=== PATIENT | female | born 1945 | race Caucasian/White ===

== ENCOUNTER 2022-10-24 12:40 | Inpatient (IN) | payer MEDICARE, SELFPAY ==
[2022-10-24] VITALS (49 sets, daily range): BP systolic 107–150; BP diastolic 63–107; PULSE 55–79; RESP 12–28; TEMP 36.6–37.1; O2SAT 78–100; BMI 19.9
--- NOTE | ~2022-10-24 | XR_ITS ---
XR chest 1V DATE: 10/24/2022 16:55 INDICATION: Central chest pain. Fall one month ago. TECHNIQUE: AP chest COMPARISON: 08/27/2019 PA and lateral chest FINDINGS: Heart size appears within normal limits. No hilar or mediastinal enlargement. No pulmonary infiltrate or consolidation, pleural effusion or pulmonary vascular congestion or pneumothorax. Inclu ded skeletal structures appear unremarkable. IMPRESSION: No active cardiopulmonary disease Reviewed, dictated and finalized at location L. ICATION PROGRAMMER ANALYST
--- NOTE | ~2022-10-24 | CT_ITS ---
EXAMINATION: CT brain wo con DATE: 10/24/2022 16:05 INDICATION: Fall. TECHNIQUE: Computed tomography (CT) of the head was performed without intravenous contrast. The mA wa s adjusted according to patient size. Iterative reconstruction technique was employed. The dose-lengt h product was 605.33 mGy-cm. COMPARISON: None FINDINGS: There is no intracranial hemorrhage, acute infarction, or abnormal intracranial mass lesion . There are scattered areas of low attenuation in the cerebral white matter. The ventricles are dhiraj l in size. There are likely changes of ocular lens replacement surgeries. There is mild mucosal thick ening in the paranasal sinuses. There are changes of right-sided cochlear implant. There is a small r ight mastoid effusion. IMPRESSION: 1. Mild nonspecific cerebral white matter disease, which likely represents chronic small vessel ische sarbjit disease. Reviewed, dictated and finalized at location A. MODEL DEPARTMENT SUPERVISOR IMPRESSION: 1. Mild nonspecific cerebral white matter disease, which likely represents solar field service technician reid small vessel ischemic disease.
--- NOTE | ~2022-10-24 | XR_ITS ---
EXAMINATION: XR chest 2V Exam Date/Time: 10/26/2022 14:25 DIESEL MECHANIC CONSTRUCTION HISTORY: 24 hours post pacemaker insertion Comparison: 10/25/2022 and 10/27/2018. RESULT: Lines, tubes, and devices: Left chest pacer with intact leads. Lungs and pleura: Senescent change, stable chronic bilateral minimal costophrenic angle blunting. Cardiomediastinal silhouette: Stable. Other: No acute osseous or upper abdominal finding. IMPRESSION: No acute cardiopulmonary process. Reviewed, dictated and finalized at location K. EL MECHANIC CONSTRUCTION
--- NOTE | ~2022-10-24 | CT_ITS ---
EXAMINATION: CT cervical spine wo con DATE: 10/24/2022 16:44 INDICATION: Fall. TECHNIQUE: Computed tomography (CT) of the cervical spine was performed without intravenous contrast. Automated exposure control and iterative reconstruction technique were employed. The dose-length pro duct was 118.30 mGy-cm. COMPARISON: None FINDINGS: There is mild scarring at the lung apices. There is 2 mm retrolisthesis of C3 and C4. Verte bral body heights are normal. There is severely decreased disc height from C3-C4 through C6-C7 with e ndplate remodeling. The following disc levels are specifically discussed: C2-C3: There is mild right uncovertebral joint osteoarthritis. There is severe right and mild left fa cet joint osteoarthritis. There is mild right neural foraminal stenosis. There is no central canal st enosis. C3-C4: There is severe bilateral uncovertebral joint osteoarthritis. There is mild bilateral facet anthony int osteoarthritis. There is mild bilateral neural foraminal stenosis. There is mild central canal st enosis. C4-C5: There is severe bilateral uncovertebral joint osteoarthritis. There is moderate right and jesus re left facet joint osteoarthritis. There is mild bilateral neural foraminal stenosis. There is mild central canal stenosis. C5-C6: There is severe bilateral uncovertebral joint osteoarthritis. There is moderate right and jesus re left facet joint osteoarthritis. There is mild bilateral neural foraminal stenosis. There is mild central canal stenosis. C6-C7: There is severe right and mild left uncovertebral joint osteoarthritis. There is severe bilate ral facet joint osteoarthritis. There is mild bilateral neural foraminal stenosis. There is mild cent ral canal stenosis. C7-T1: There is no uncovertebral joint osteoarthritis. There is severe bilateral facet joint osteoart hritis. There is mild bilateral neural foraminal stenosis. There is no central canal stenosis. IMPRESSION: 1. No fracture. 2. Severe cervical spondylosis. Reviewed, dictated and finalized at location A. TIVE SPECIALIST
--- NOTE | ~2022-10-24 | XR_ITS ---
EXAMINATION: XR chest 1V portable DATE: 10/25/2022 19:15 INDICATION: Pacer placement. Chest pain. TECHNIQUE: A single frontal view of the chest was obtained. COMPARISON: Chest single view at 3:07 PM, chest 2 views 08/27/2019 FINDINGS: There is mild scarring in right midlung zone. There is mild scarring at the lung apices. No pleural effusion or pneumothorax. There is chronic blunting of left lateral costophrenic angle, like ly scarring. The heart size is normal. There are prominent paracardial fat pads. There is a left ches t wall pacer with leads in the right atrium and right ventricle. IMPRESSION: 1. Mild scarring in the lungs. Reviewed, dictated and finalized at location A. L EXPEDITER
--- NOTE | ~2022-10-24 | XR_ITS ---
EXAMINATION: XR chest 1V portable DATE: 10/25/2022 15:16 INDICATION: Pacemaker insertion TECHNIQUE: frontal view of the chest was obtained. COMPARISON: Chest radiograph dated 10/24/2022 FINDINGS: Interval placement of a dual lead pacemaker seen with leads projecting over the expected locations of the right atrium and right ventricle. Persistent mild streaky opacities at the lung bases and favor atelectasis over pneumonia. Mild blunting at the left costophrenic angle suggesting a tiny left pleur al effusion. No pneumothorax or right pleural effusion. The cardiomediastinal silhouette is normal. IMPRESSION: 1. Delayed cardiac pacemaker in expected position. 2. Tiny left pleural effusion and mild streaky bibasilar atelectasis versus less likely pneumonia. Reviewed, dictated and finalized at location A. OR SAS DEVELOPER IMPRESSION: 1. Delayed cardiac pacemaker in expected position. 2. Tiny left pleural effusion and mild streaky bibasilar atelectasis versus les s likely pneumonia.
--- NOTE | 2022-10-24 13:10 | PC.NURSE ---
pt. family member sitting w/ pt. RN asked family member to leave due to pt. being covid-19 positive. pt. family says I wont leave her ED security contacted as well as data systems manager.
--- NOTE | 2022-10-24 13:15 | PC.NURSE ---
This RN discussed with patient and daughter the visitor policy regarding covid patients. Daughter expressed concern that the patient will not possibly remember what the doctor discusses with her when she is alone. Did assure patient and daughter that the nurse caring for her along with the provider can call them and share information with them as they are talking with the patient. Daughter was agreeable to this.
--- NOTE | 2022-10-24 15:15 | ECG_ITS ---
Measurements Intervals [place] Rate: 59 P: 2 CT: 174 QRS: 31 QRSD: 73 T: 48 QT: 407 QTc: 404 Interpretive Statements SINUS BRADYCARDIA BASELINE ARTIFACT- I, II, III ,AVR, AVL BORDERLINE ECG NO PREVIOUS ECG AVAILABLE FOR COMPARISON Electronically Signed On 10-24-2022 15:32:13 COPYIST by Camacho Suarez D.O.
--- NOTE | 2022-10-24 15:37 | ED.FALL ---
HPI - Fall General Chief Complaint: Fall Stated Complaint: Fall, hit head, covid-19+ Time Seen by Provider: 10/24/22 14:56 Source: patient and family Limitations: dementia History of Present Illness HPI Narrative: Patient is 76 years old white female lightheadedness, dizziness and syncope, and fall backward on the floor. Patient was washing dishes, found by her slumped over on the sink, was try to see what is going on and fell backward, her head struck his knee and the way down to the floor. Patient was confused and disoriented after the fall. History of Alzheimer the daughter reports that patient been having diarrhea for 1 and half week on average 2-6 episodes a day. Also reports that patient been having sore throat, coughing and long hours sleep started 4 to 5 days ago. Patient tested positive for COVID yesterday because of the above symptoms. Patient is fully vaccinated for COVID. She denies any chest pain or shortness of breath at this time. Patient is asymptomatic. Related Data Home Medications Medication Instructions Recorded Confirmed sertraline 50 mg tablet (Zoloft) 50 mg PO DAILY 10/24/22 10/24/22 Allergies Allergy/AdvReac Type Severity Reaction Status Date / Time No Known Allergies Allergy Verified 10/24/22 15:17 Review of Systems Review of Systems: All systems reviewed & are unremarkable except as noted in HPI and below Exam Narrative: General appearance: Well-developed, well-nourished Skin: Normal color Head: Normocephalic, nontraumatic Eyes: Clear conjunctiva ENT: Oropharynx normal, ears normal, nose normal Neck: Supple, nontender Chest and respiratory: Airway patent, no respiratory distress, no accessory muscle use Heart: Regular rate/rhythm Abdomen: Soft, nontender, no organomegaly, quiet bowel sounds Vascular: Normal peripheral pulses, normal capillary refill. Musculoskeletal: Normal range of motion, nontender back Neurologic: Alert and oriented to her name only Course Vital Signs Vital signs: Vital Signs Pulse Rate 69 10/24/22 12:55 Respiratory Rate 18 10/24/22 12:55 Blood Pressure 109/70 10/24/22 12:55 Pulse Oximetry 96 10/24/22 12:55 Temperature 37.1 C 10/24/22 18:51 Pulse Rate 59 L 10/24/22 18:51 Respiratory Rate 18 10/24/22 18:51 Blood Pressure 122/78 10/24/22 18:51 Pulse Oximetry 100 10/24/22 18:51 Oxygen Delivery Room Air 10/24/22 14:56 MDM - Fall MDM Narrative Medical decision making narrative: Patient 76 years old white female came from home because of syncope and fall. Patient was tested positive for COVID yesterday, COVID symptoms of for the last for 5 days, patient is fully vaccinated for COVID, history of Alzheimer, poor historian, the history per Patient daughter Differential diagnosis includes: Hypotension, dehydration, electrolyte imbalance, cardiac arrhythmia, general weakness secondary to COVID infection. Labs, COVID test, CT brain and cervical spine, chest x-ray, ordered. Normal saline 1 L IV ordered Blood work-up showed no significant abnormalities. CT head, cervical spine and chest x-ray showed no acute abnormalities. Patient to be admitted for observation, discussed with the hospitalist Differential Diagnosis Differential diagnosis: Likely syncope and concussion with loss of consciousness Lab Data 10/24/22 15:26 10/24/22 15:26 Labs: Lab Results 10/24/22 10/24/22 10/24/22 Range/Units 15:26 15:26 16:23 WBC 4.7 (4.5-10.0) K/mm3 RBC 4.34 (4.2-5.4) M/mm3 Hgb 13.7 (12.0-15.0) g/dL Hct 41.6 (37.0-47.0) % MCV 95.9 (80-100) fl MCH 31.6 (26-34) pg MCHC 32.9 (32-36) g/dl RDW
[2022-10-24 15:38] LABS: Basophils Percent Auto 0.2 % (0.2-1.2); Eosinophils Absolute Auto 0.1 K/mm3 (0-0.3); Eosinophils Percent Auto 1.3 % (0-4.4); Hematocrit 41.6 % (37.0-47.0); Hemoglobin 13.7 g/dL (12.0-15.0); Immature Granulocyte Absolute 0.01 K/mm3 (0.00-0.031); Immature Granulocyte Percent A 0.2 % (0-0.5); Lymphocytes Absolute Auto 1.15 K/mm3 (0.9-3.2); Lymphocytes Percent Auto 24.4 % (18.3-44.2); Mean Corpuscular HGB Conc 32.9 g/dl (32-36); Mean Corpuscular Hemoglobin 31.6 pg (26-34); Mean Corpuscular Volume 95.9 fl (80-100); Mean Platelet Volume 9.5 fl (7.4-10.4); Monocytes Absolute Auto 0.3 K/mm3 (0.1-0.6); Monocytes Percent Auto 6.8 % (2.6-8.5); Neutrophils Absolute Auto 3.2 K/mm3 (1.3-6.7); Neutrophils Percent Auto 67.1 % (45.5-73.1); Platelet Count Result 170 k/mm3 (150-375); Red Blood Count 4.34 M/mm3 (4.2-5.4); Red Cell Distribution Width 12.5 % (11.5-14.5); White Blood Count 4.7 K/mm3 (4.5-10.0)
[2022-10-24 15:50] LABS: Alanine Aminotransferase 21 U/L (6-35); Albumin Level 4.2 g/dL (3.5-5.1); Alkaline Phosphatase 52 U/L (38-126); Anion Gap 5 mmol/L (8-16); Aspartate Amino Transferase 30 U/L (14-36); Bilirubin,Total 0.5 mg/dL (0.2-1.3); Blood Urea Nitrogen 13 mg/dL (7-17); Calcium 9.4 mg/dL (8.4-10.2); Carbon Dioxide 32 mmol/L (22-30); Chloride 105 mmol/L (98-107); Estimated CRCL calculation 41 ml/min; Estimated Glomerular Filt Rate > 60; Glucose 98 mg/dL (65-110); Potassium 3.9 mmol/L (3.4-5.0); Sodium 142 mmol/L (137-145)
[2022-10-24] MEDS: SODIUM CHLORIDE 0.9% IV 1,000 ML 999 ML IV CONT (17:08)
[2022-10-24 17:22] LABS: SARS-CoV-2 RNA PCR Positive
--- NOTE | 2022-10-24 19:39 | PM.IMHP ---
H&P: HPI History of Present Illness Date/Time: 10/24/22 19:39 Chief Complaint: Fall Narrative: This is a 76-year-old female patient who became lightheaded dizzy and had a syncopal episode fell backwards on the floor. The patient stated she was washing dishes in her found her slumped over the sink. He went to see was going on she fell backwards and she struck her head on his knee and she would down to the floor. The patient was confused and disorientated. She has a history of Alzheimer's. The patient had a history of diarrhea for 1 and half week and is having 2-6 episodes a day. The patient was trying to tell me that she fell another time when she was coming up the stairs and she was trying to put the [place] boxes on the floor and she fell forward hit her chest on the boxes. The patient tested positive for COVID yesterday and has been feeling weak and dizzy. She has no shortness of breath or cough at this time. No fever chills. Patient was also found to be positive for COVID here. Chest x-ray was read as no acute cardiopulmonary disease. Patient is currently on room air. Cervical spine was read as no fracture cervical spondylosis severe. Head CT is read as mild nonspecific cerebral white matter disease which likely represents chronic small vessel ischemic disease. The patient is being admitted to observation status on the date of service of 10/24/2022. Review of Systems Review of Systems: See HPI All systems reviewed & are unremarkable except as noted in HPI and below Constitutional: Constitutional: Reports as per HPI and Reports no additional constitutional complaints Eyes: Eyes: Reports as per HPI and Reports no additional eye complaints ENT: Reports system reviewed and no additional complaints, except as documented and Reports Normal hearing present Cardiovascular: Cardiovascular: Reports no additional cardiovascular complaints Respiratory: Respiratory: Reports no additional respiratory complaints and Reports no additional respiratory complaints Gastrointestinal: Gastrointestinal: Reports as per HPI and Reports no additional gastrointestinal complaints Musculoskeletal: Musculoskeletal: Reports no additional musculoskeletal complaints Integumentary/Breasts: Skin/Breast: Reports system reviewed and no additional complaints, except as docu and Reports as per HPI Neurologic: Reports system reviewed and no additional complaints, except as documented, Reports as per HPI and Reports Normal hearing present Psychiatric: Psychiatric: Reports no additional psychiatric complaints and Reports as per HPI Endocrine: Endocrine: Reports no additional endocrine complaints Hematologic/Lymphatic: Hematologic/Lymphatic: Reports no additional hematologic/lymphatic complaints Allergic/Immunologic: Allergic/Immunologic: Reports no additional allergic/immunologic complaints [facility] Past Medical History Medical History (Updated 10/24/22 @ 19:43 by Chani Carrasco NP) Anxiety disorder Memory loss Surgical History Surgical History (Updated 10/24/22 @ 19:43 by Chani Carrasco NP) History of appendectomy Hx of cholecystectomy Hx of emergency section Family History Family History (Updated 10/24/22 @ 19:46 by Chani Carrasco NP) Mother Heart disease Daughter Fibromyalgia Social History Social History (Updated 10/25/22 @ 01:36 by Chani Carrasco NP) Social History: The patient lives with her and has 2 daughters. 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 She is a lifelong nonsmoker. She does not use any marijuana or illicit drugs. Her is a durable power attorney law clerk for healthcare. Code status full code Smoking status: Never smoker Alcohol intake: former Substance use: never Lack of Transportation: No Lack of Food: Never True Current Housing: I Have Housing Concerned About Future Housing: No Difficulty Paying Gas/Electric Bills: No Difficulty Payin
[2022-10-24] MEDS: SODIUM CHLORIDE 0.9% IV 1,000 ML 150 ML IV CONT (21:36)
--- NOTE | 2022-10-24 22:21 | ADMGEN ---
This patient, Matilda Blackman, was admitted to Medical Room 343-01. Patient/family oriented to hospital policies and general routines including ID bracelet, bed and alarms, visiting hours, pain management, procedures, bathroom and other care routines, personal items, smoking policy, room service/diet, and visiting hours. Information on how to activate the Rapid Response Team has been discussed. Patient/Family are encouraged to report perceived risks to care and to ask questions if they do not understand what they are told or what they should do.
[2022-10-25] VITALS (49 sets, daily range): BP systolic 102–141; BP diastolic 60–81; PULSE 50–83; RESP 10–26; TEMP 36.4–36.9; O2SAT 93–100
--- NOTE | 2022-10-25 | ECHO_ITS ---
Patient Info Name: Matilda Blackman Age: 76 years : 1945 Gender: Female Ht: 67 in Wt: 127 lbs BSA: 1.64 m2 HR: 63 bpm BP: 107 / 63 mmHg Heart Rhythm: Sinus Rhythm Technical Quality: Good Exam Date: 10/25/2022 10:56 AM Exam Location: [facility] Exam Room: 343 Patient Status: Inpatient Admit Date: 10/25/2022 Staff Ordering Physician: Chani Carrasco NP Air Plant Engineer: Liseth Sanchez RDCS Attending Provider: Bud Guillory MD Referring Physician: Luna ASHFORD; Exam Type: CA echo doppler color flow Study Info Indications - syncope episode Complete two-dimensional, color flow and Doppler transthoracic echocardiogram is performed. Summary 1. Complete two-dimensional, color flow and Doppler transthoracic echocardiogram is performed. 2. Mild tricuspid regurgitation. 3. Otherwise normal echocardiogram. Left Ventricle Left ventricular chamber dimension is normal. Left ventricular systolic function is normal, estimated at 60-65%. The left ventricular diastolic function is normal. Right Ventricle Right ventricular chamber dimension is normal. Left Atria Left atrial chamber dimension is normal. Right Atria Right atrial chamber dimension is normal. Aortic Valve The aortic valve is normal. Pulmonic Valve The pulmonic valve is normal. Mitral Valve The mitral valve has normal leaflets. Tricuspid Valve The tricuspid valve leaflets are normal. There is mild tricuspid valve regurgitation. Pericardium/Pleural The pericardium appears normal. Aorta The aortic root size at the sinus of Valsalva is normal. Left Ventricular Outflow Tract Name Value Normal LVOT 2D LVOT Diameter 2.0 cm LVOT Doppler LVOT Peak Gradient 4 mmHg LVOT Mean Gradient 2 mmHg LVOT VTI 20 cm LVOT VTI/AV VTI Ratio 0.8 LVOT Stroke Volume 64 ml LVOT CO 12.8 l/min LVOT CI 7.8 l/min/m2 Pulmonic Valve Name Value Normal PV Doppler PV Peak Gradient 2 mmHg Mitral Valve Name Value Normal MV Doppler MV Decel [place] 403 cm/s2 MV PHT 63 ms MV Area (PHT) 3.5 cm2 4.0-5.0 MV Diastolic Function MV E Peak Velocity 88 cm/s MV A Peak Velocity 93 cm/s M
[2022-10-25] MEDS: SODIUM CHLORIDE 0.9% IV 1,000 ML 50 ML IV CONT ×2 (01:41→09:02)
[2022-10-25 05:53] LABS: Basophils Percent Auto 0.2 % (0.2-1.2); Eosinophils Absolute Auto 0.1 K/mm3 (0-0.3); Eosinophils Percent Auto 2.2 % (0-4.4); Hematocrit 36.3 % (37.0-47.0); Hemoglobin 11.8 g/dL (12.0-15.0); Immature Granulocyte Absolute 0.01 K/mm3 (0.00-0.031); Immature Granulocyte Percent A 0.2 % (0-0.5); Lymphocytes Absolute Auto 0.89 K/mm3 (0.9-3.2); Lymphocytes Percent Auto 22.1 % (18.3-44.2); Mean Corpuscular HGB Conc 32.5 g/dl (32-36); Mean Corpuscular Hemoglobin 31.7 pg (26-34); Mean Corpuscular Volume 97.6 fl (80-100); Mean Platelet Volume 9.7 fl (7.4-10.4); Monocytes Absolute Auto 0.3 K/mm3 (0.1-0.6); Monocytes Percent Auto 6.7 % (2.6-8.5); Neutrophils Absolute Auto 2.8 K/mm3 (1.3-6.7); Neutrophils Percent Auto 68.6 % (45.5-73.1); Platelet Count Result 147 k/mm3 (150-375); Red Blood Count 3.72 M/mm3 (4.2-5.4); Red Cell Distribution Width 12.6 % (11.5-14.5)
[2022-10-25 06:08] LABS: Alanine Aminotransferase 19 U/L (6-35); Albumin Level 3.4 g/dL (3.5-5.1); Alkaline Phosphatase 41 U/L (38-126); Anion Gap 2 mmol/L (8-16); Aspartate Amino Transferase 26 U/L (14-36); Bilirubin,Total 0.4 mg/dL (0.2-1.3); Blood Urea Nitrogen 10 mg/dL (7-17); Calcium 7.7 mg/dL (8.4-10.2); Carbon Dioxide 29 mmol/L (22-30); Chloride 105 mmol/L (98-107); Estimated CRCL calculation 54 ml/min; Estimated Glomerular Filt Rate > 60; Glucose 106 mg/dL (65-110); Magnesium 1.7 mg/dL (1.6-2.3); Potassium 3.4 mmol/L (3.4-5.0); Sodium 136 mmol/L (137-145)
[2022-10-25 06:09] LABS: Lactic Acid Reflex 0.8 mmol/L (0.7-2.0)
--- NOTE | 2022-10-25 07:31 | ECG_ITS ---
Measurements Intervals [place] Rate: 62 P: 30 NC: 197 QRS: 25 QRSD: 73 T: 34 QT: 416 QTc: 424 Interpretive Statements SINUS RHYTHM LOW QRS VOLTAGE IN PRECORDIAL LEADS BASELINE ARTIFACT- I, III, AVL BORDERLINE ECG COMPARED TO ECG 10/24/2022 15:30:22 SINUS RHYTHM NOW PRESENT Electronically Signed On 10-25-2022 8:25:53 COMPLIANCE COORDINATOR by Camacho Suarez D.O.
[2022-10-25 08:44] LABS: Free T4 Free Thyroxine Reflex 1.31 ng/dL (0.78-2.19)
[2022-10-25] MEDS: POTASSIUM CHLORIDE 20 MEQ TABLET 40 MEQ PO (09:02)
[2022-10-25] MEDS: MAGNESIUM SULF 2 GM/WATER 50ML 2 GM/50 ML BAG IVPB (09:02)
[2022-10-25] MEDS: SERTRALINE HCL 50 MG TABLET PO (09:15)
--- NOTE | 2022-10-25 09:26 | WPDCNINT ---
Assessment and Plan Assessment and plan (1) Sick sinus syndrome due to sinoatrial node dysfunction: Code(s): I49.5 - Sick sinus syndrome Status: Acute Assessment and Plan: Likely secondary to sick sinus syndrome Cardiology has been consulted to evaluate for pacemaker placement Echocardiogram Replace electrolytes ICU telemetry monitoring Atropine at bedside Patient has pacer pads on (2) Syncope: Code(s): R55 - Syncope and collapse Status: Acute Assessment and Plan: Likely secondary to sick sinus syndrome See above (3) COVID-19 virus infection: Code(s): U07.1 - COVID-19 Status: Acute Assessment and Plan: Patient tested positive for COVID-19 and is vaccinated against COVID-19 Her chest x-ray is clear and she is on room air No specific treatment indicated at this time Continue isolation (4) Electrolyte abnormality: Code(s): E87.8 - Other disorders of electrolyte and fluid balance, not elsewhere classified Status: Acute Assessment and Plan: Replace low magnesium and potassium (5) Abnormal thyroid function test: Code(s): R94.6 - Abnormal results of thyroid function studies Status: Acute Assessment and Plan: Abnormal TSH Check T3 and T4 (6) Diarrhea: Code(s): R19.7 - Diarrhea, unspecified Status: Acute Assessment and Plan: Most likely gastroenteritis as patient and both outside and started having diarrhea next day. Could also be secondary to COVID It seems to have improved. Monitor Check C diff if patient continues to have diarrhea On IV fluids (7) Chest pain: Code(s): R07.9 - Chest pain, unspecified Status: Acute Assessment and Plan: Appears noncardiac and either pleuritic or musculoskeletal in nature as per history EKG reviewed and showed does not show any ST elevation or ischemic changes Continue pain control Plan DVT prophylaxis -Lovenox is currently on hold for possible pacemaker placement Nutrition -NPO for procedure Code Status - Full Code I updated both patient and patient's daughter on phone with patient's current status, current treatment plan and the possibility of her needing a pacemaker Finish Photographer Consult Note Consult date: 10/25/22 Reason for consult: Sinus pause HPI: Matilda Blackman is a 76 year old female with past medical history of Alzheimer's dementia who was admitted yesterday to the floor after a syncopal episode. Patient due to dementia is a poor historian. History was supplemented by her daughter who was on the phone. Some of the history was conflicting between 2. From summary it appears the patient has been having episodes of syncope and falls. Last week patient and ate outside and both started having diarrhea. Patient was having diarrhea but did not see any blood in it. Yesterday after coming out of bathroom she passed out. She was unable to give me any further details as she states she does not remember. She was caught by her and she hit his knee with her head although there is no obvious trauma to head. During 1 fall she did hit her chest. In ED her head CT was negative and neck CT showed severe is cervical spondylosis. Chest x-ray was negative for any fractures. She tested positive for COVID-19 but her chest x-ray was clear and and her daughter states she had some cough and sore throat earlier although patient was unable to give any further history on that. No fevers was reported. This morning patient was on the floor and episode of sinus pause. Patient again was not able to give any further details about what symptoms she had at that time. Patient was transferred to ICU for close ICU monitoring, pacing pads were placed and atropine was placed at bedside. Cardiology was consulted. Patient is on room air and stable vital signs otherwise. She states she is having chest pain she points towards right side of her chest and states
--- NOTE | 2022-10-25 09:51 | PM.CNCAR ---
Assessment and Plan Assessment and plan (1) Syncope: Code(s): R55 - Syncope and collapse Status: Acute Plan this is a 76-year-old lady without prior cardiovascular history. She has been having a diarrheal illness for something like 5 or 6 days prior to this admission. She does not appear to be significantly dehydrated by physical exam or by lab data. She also tested positive for coronavirus. In this setting she was admitted for evaluation and had a long asystolic pause this morning as described above. There are no medications on for that could be implicated in this and this of course represents a class 1 indication for implantation of a pacemaker device. She seems to be agreeable with this I will arrange for this to be done later today. Harish Castillo MD [facility] History of Present Illness History of Present Illness Consult date/time: 10/25/22 09:51 Reason For Visit: COVID infection, syncope, diarrhea Narrative: This is a very pleasant 76-year-old lady I am seeing at the request of the hospitalist's today because of a syncopal episode that prompted hospitalization for evaluation yesterday. While the patient has been hospitalized she had a significant asystolic pause this morning prompting this consultation. 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 She does however state that yesterday that while she was at home she had a syncopal episode in her kitchen. She has been feeling somewhat poorly for the last 5 or 6 days with a diarrheal illness she does describing 3 or 4 diarrheal bowel movements daily for that many days and yesterday evening she had a diarrheal episode in the afternoon that was not anything unusual as far as that illnesses concerned after she came out of the bathroom and walked into her kitchen she states she felt poorly for a moment and then clearly lost consciousness because she was awakening on the floor. Her was standing next to her when this happened and she states she thinks he will lowered her to the floor so that she did not have a significant impact and did not sustain any significant injury. Ambulance was called and she was taken to the hospital for evaluation. Her 12 lead electrocardiograms look essentially unremarkable with normal sinus rhythm normal AV and intraventricular conduction. There are no repolarization abnormalities. Her laboratory data looks largely unremarkable. She states that other than early stage Alzheimer's she does not have any other significant medical conditions denies any history of hypertension diabetes or dyslipidemia. She is a lifelong nonsmoker. 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 She lives at home with her . With the patient's above illness she was self tested for COVID at home and was positive. COVID swab here in this hospital was also positive yesterday. As such she is in ICU room 6. In isolation. This morning while patient was in the ICU in the supine she had a obvious long asystolic pause of 22 seconds. I see 1 P-wave in that long pause but no other P waves is primarily appears to be severe sick sinus syndrome with sinus arrest with no Effective escape rhythm. spent a long time discussing this arrhythmia with the patient and in this situation pacemaker implantation is obviously indicated. An echocardiogram has been appropriately ordered by the hospital staff which is pending this morning. Patient's chest x-ray looks largely unremarkable to my opinion Review of Systems Constitutional: Constitutional: Reports no additional constitutional complaints Eyes: Eyes: Reports no additional eye complaints ENT: Reports system reviewed and no additional complaints, except as documented Cardiovascular: Cardiovascular: Reports as per HPI Respiratory: Respiratory: Reports no additional respiratory complaints Gastrointestinal: G
--- NOTE | 2022-10-25 10:27 | WPDMODSED ---
Moderate Sedation Note-Pt Data Patient Data Diagnosis: syncope with sick sinus syndrome Present Complaint: syncope Procedure to be performed/Plan: permanent pacemaker implantation Allergies Allergy/AdvReac Type Severity Reaction Status Date / Time No Known Allergies Allergy Verified 10/24/22 23:21 Home Medications Medication Instructions Recorded Confirmed Type sertraline 50 mg tablet (Zoloft) 50 mg PO DAILY 10/24/22 10/24/22 History donepezil 5 mg tablet 5 mg PO DAILY 10/25/22 10/25/22 History Current Medications: Active Medications Acetaminophen (Acetaminophen 325 Mg Tablet) 650 mg PO Q4H PRN PRN Reason: Headache, pain or fever Enoxaparin Sodium (Enoxaparin 40 Mg/0.4 Ml Syringe) 40 mg SUB-Q DAILY MARYLOU Acetaminophen (Ofirmev 1,000 Mg Ivpb) 1,000 mg in 100 mls @ 400 mls/hr IVPB Q6H PRN PRN Reason: Mild Pain (1-3) or Fever Stop: 10/25/22 16:35 Last Infusion: 10/25/22 04:14 Dose: Infused Potassium Chloride/Sodium Chloride (Kcl 20 Meq/Ns) 1,000 mls @ 75 mls/hr IV CONT .[id number] MARYLOU Ondansetron HCl (Ondansetron Inj 4 Mg/2 Ml Vial) 4 mg IV PUSH Q4H PRN PRN Reason: Nausea Perflutren Lipid Microsphere (Perflutren Lipid Microspheres 1.5 Ml Vial Diluted To 10 Ml Total Volume) 0 ml IV PUSH ONCE PRN; Protocol PRN Reason: adequate visualization Stop: 10/27/22 01:38 Sertraline HCl (Sertraline Hcl 50 Mg Tablet) 50 mg PO DAILY MARYLOU Last Admin: 10/25/22 09:15 Dose: 50 mg Sedation/Anesthesia: No previous sedation/anesthesia problems (including family history). [facility] Past Medical History Medical History Alzheimer's dementia Anxiety disorder Memory loss Surgical History Surgical History History of appendectomy Hx of cholecystectomy Hx of emergency section Family History Family History Mother Heart disease Daughter Fibromyalgia Social History Social History Social History: The patient lives with her and has 2 daughters. 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 She is a lifelong nonsmoker. She does not use any marijuana or illicit drugs. Her is a durable power straight ruling machine operator for healthcare. Code status full code Smoking status: Never smoker Alcohol intake: former Substance use: never Lack of Transportation: No Lack of Food: Never True Current Housing: I Have Housing Concerned About Future Housing: No Difficulty Paying Gas/Electric Bills: No Difficulty Paying for Meds: No Currently Unemployed: No Education: Master's Degree or Higher Difficulty w/ Childcare or Family Care: No Spiritual care concerns: No Mod Sed Physical Exam Physical Exam Pre Procedural Exam: Normal: Appearance, Throat, Airway, Lungs, Heart Size, Heart Rate, Heart Rhythm, Neuro Exam and Extremities Hours since solid foods: 12 Hours since liquid intake: 12 Mallampati Classification: class II Internal Medicine - PN: Obj Da Vital Signs Vital Signs: Vital Signs - 24 hr 10/24/22 12:55 10/24/22 14:56 10/24/22 15:17 Temperature Pulse Rate 69 57 L 59 L Respiratory Rate 18 16 Blood Pressure 109/70 112/63 107/79 Pulse Oximetry 96 100 Oxygen Delivery Room Air 10/24/22 15:20 10/24/22 15:17 10/24/22 15:19 Temperature Pulse Rate 66 65 61 Respiratory Rate 18 Blood Pressure 126/70 131/75 126/70 Pulse Oximetry 97 Oxygen Delivery 10/24/22 16:39 10/24/22 17:05 10/24/22 18:51 Temperature 37.1 C 37.1 C Pulse Rate 60 66 59 L Respiratory Rate 16 24 H 18 Blood Pressure 118/91 H 122/78 Pulse Oximetry 100 99 100 Oxygen Delivery 10/24/22 15:06 10/24/22 15:16 10/24/22 15:18 Temperature Pulse Rate 60 67 Respiratory Rate 16 15 Blood Pressure 112/63 140/65 107/79 Pulse Oximetry 100 100 96 Oxygen Delivery
[2022-10-25 11:12] LABS: Total Triiodothyronine (T3) 0.91 NG/ML (0.97-1.69)
[2022-10-25] MEDS: KCL 20MEQ/0.9% SOD CHL 1,000 ML 75 ML IV CONT (11:59)
--- NOTE | 2022-10-25 14:27 | ECG_ITS ---
Measurements Intervals [place] Rate: 66 P: 206 MA: 226 QRS: 31 QRSD: 66 T: 30 QT: 403 QTc: 424 Interpretive Statements ELECTRONIC ATRIAL PACEMAKER ATYPICAL ECG COMPARED TO ECG 10/25/2022 08:09:24 ATRIAL PACEMAKER NOW PRESENT Electronically Signed On 10-25-2022 15:26:22 PROM BURN OFF OPERATOR by Camacho Suarez D.O.
--- NOTE | 2022-10-25 14:28 | WPDCARDPROC ---
Cardiac Cath Procedure Note Date of procedure:: 10/25/22 Performing physician:: Harish Castillo MD Indication:: syncope with sick sinus syndrome Brief clinical history:: this is a 76-year-old woman who entered the hospital yesterday after experiencing a syncopal episode at her home. She has no prior cardiovascular history. She was found on telemetry this morning to have a long asystolic pause of more than 20 seconds prompting recommendation to implant pacemaker device. Procedure Procedure performed:: Implantation of permanent dual-chamber pacemaker Sedation/Medication given:: no sedation Access site:: left subclavian Estimated blood loss:: 20 cc Procedure note:: patient was brought to the cardiac catheterization lab in the postabsorptive state the left anterior chest wall was prepped and draped in the usual sterile fashion. Anesthesia was given inferior to the incision using 1% lidocaine. An incision was then made about an inch below the clavicle between the midclavicular line And the deltopectoral groove. following this sharp and blunt dissection was used to separate the subcutaneous tissue to the level of the prepectoral fascia. Electrocautery was used to provide cutaneous hemostasis. Following this blunt dissection was used to create a pacemaker pocket along the fascial plane inferior to the incision. This was then packed with an antibiotic-soaked 4 x 4. Following this attention was turned to venous access. Several attempts were made to puncture the subclavian vein unsuccessfully this reason a venogram was performed locating the vein a bit more superior than it was expected to be. Following this the subclavian vein was punctured easily and 2 separate punctures were made and J-tip guidewires with the pacemaker safe sheaths sets were advanced into the venous circulation under fluoroscopic visualization to the level of the right atrium. Two 6 [place] safe sheaths were then used to place the pacemaker leads detailed below into the venous circulation advanced him to the level of the right atrium. Attention was then turned to the ventricular lead. I removed the straight stylet and used a 3 cc syringe to form a Ray tipped stylet steering lead to the right ventricle out to the PA position. a straight stylet was then placed into the lead and it was withdrawn and placed into the right ventricular apex. The fixation screw was deployed and using the analyzer appropriate pacing and sensing performance was demonstrated. Following this attention was turned to the atrial lead positioning. The straight stylet was removed and a preformed atrial J stylet was placed into the lead it was positioned into the right atrial appendage with very good motion and the fixation screw was deployed. Once again the lead was tested using the analyzer with good pacing and sensing performance. The leads were then sutured to the base of the pocket using 2 0 silk ties in the suture sleeves on the leads. Following this the retained sponge was removed from the pocket the pocket was irrigated with antibiotic infused saline. The pacemaker generator was then connected to the newly position leads and the entire assembly was placed into the pocket. This was then closed in layers using 3-0 Vicryl in an interrupted fashion for the subcutaneous tissue and 4-0 Vicryl in a running subcuticular fashion for the skin. The wound was dressed with an Aquacel dressing she was taken off the table the left arm will be placed in an immobilizer and she was taken back to her room for post pacemaker implant recovery. Procedure was well tolerated and uncomplicated. Findings:: The patient received a permanent Biotronik dual-chamber pacemaker model Edora 8 [id number]. serial number [id number]. Device is programmed in the DDD CLS mode lower rate upper rate limit 130. The atrial lead is a Biotronik active fixation bipolar lead model Solia S [id number]. Serial number [id number]. Alexandria mata
[2022-10-25] MEDS: HYDROcodone/acetaminophen (*CRX) 5-325 MG TABLET 1 TAB PO (19:04)
[2022-10-26] VITALS (17 sets, daily range): BP systolic 107–122; BP diastolic 62–73; PULSE 60–77; RESP 12–19; TEMP 36.8–37.1; O2SAT 94–100
[2022-10-26] MEDS: HYDROcodone/acetaminophen (*CRX) 5-325 MG TABLET 1 TAB PO (00:43)
[2022-10-26] MEDS: KCL 20MEQ/0.9% SOD CHL 1,000 ML 75 ML IV CONT (04:12)
[2022-10-26 04:44] LABS: Hemoglobin 12.6 g/dL (12.0-15.0); Mean Corpuscular HGB Conc 32.3 g/dl (32-36); Mean Corpuscular Hemoglobin 31.5 pg (26-34); Mean Corpuscular Volume 97.5 fl (80-100); Mean Platelet Volume 9.5 fl (7.4-10.4); Platelet Count Result 147 k/mm3 (150-375); Red Cell Distribution Width 12.2 % (11.5-14.5); White Blood Count 5.5 K/mm3 (4.5-10.0)
[2022-10-26 04:59] LABS: Alanine Aminotransferase 24 U/L (6-35); Albumin Level 3.4 g/dL (3.5-5.1); Alkaline Phosphatase 44 U/L (38-126); Anion Gap 3 mmol/L (8-16); Aspartate Amino Transferase 29 U/L (14-36); Bilirubin,Total 0.6 mg/dL (0.2-1.3); Blood Urea Nitrogen 11 mg/dL (7-17); Calcium 7.1 mg/dL (8.4-10.2); Carbon Dioxide 23 mmol/L (22-30); Chloride 109 mmol/L (98-107); Estimated CRCL calculation 62 ml/min; Estimated Glomerular Filt Rate > 60; Glucose 89 mg/dL (65-110); Magnesium 2.1 mg/dL (1.6-2.3); Phosphorus 2.2 mg/dL (2.5-4.5); Sodium 135 mmol/L (137-145)
[2022-10-26] MEDS: SERTRALINE HCL 50 MG TABLET PO (08:16)
[2022-10-26] MEDS: DONEPEZIL HCL 5 MG TABLET PO (08:16)
[2022-10-26] MEDS: POTASSIUM/PHOSPHORUS/SODIUM 1.5 GM PACKET 1 PACKET PO (08:16)
--- NOTE | 2022-10-26 08:18 | WPDINTPN ---
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 (2) Syncope: Code(s): R55 - Syncope and collapse Status: Acute Assessment and Plan: Likely secondary to sick sinus syndrome Now patient has a pacemaker PT OT consult (3) COVID-19 virus infection: Code(s): U07.1 - COVID-19 Status: Acute Assessment and Plan: Patient tested positive for COVID-19 and is vaccinated against COVID-19 Her chest x-ray is clear and she is on room air No specific treatment indicated at this time Continue isolation (4) Electrolyte abnormality: Code(s): E87.8 - Other disorders of electrolyte and fluid balance, not elsewhere classified Status: Acute Assessment and Plan: Replace low phosphate and calcium (5) Abnormal thyroid function test: Code(s): R94.6 - Abnormal results of thyroid function studies Status: Acute Assessment and Plan: Elevated TSH Check T3 and T4 (6) Diarrhea: Code(s): R19.7 - Diarrhea, unspecified Status: Acute Assessment and Plan: Most likely gastroenteritis as patient and both outside and started having diarrhea next day. Could also be secondary to COVID It seems to have improved as patient has not had any bowel movement in last 36 hours. Monitor Discontinue IV fluids (7) Chest pain: Code(s): R07.9 - Chest pain, unspecified Status: Acute Assessment and Plan: Appears noncardiac and either pleuritic or musculoskeletal in nature as per history EKG reviewed and showed does not show any ST elevation or ischemic changes Continue pain control (8) Hypothyroidism: Code(s): E03.9 - Hypothyroidism, unspecified Status: Acute Assessment and Plan: Patient had elevated TSH. Free T4 was normal but low T3 Patient is unable to provide detailed history and may have hypothyroidism Start low dose levothyroxine. Will need TSH repeated in 4-6 week Plan DVT prophylaxis -Lovenoxt Nutrition -diet ordered Code Status - Full Code Incentive spirometry, PT OT consult Transfer out of ICU Subjective Date/time seen: 10/26/22 08:18 Patient had a permanent pacemaker placement yesterday. She had some pain at the site overnight. A chest x-ray was checked and was unremarkable. Pain was treated with p.o. pain medications. She states her pain is much better and is much milder this morning. She was unable to give me exact number for severity. She states pain is aching and worse with movement of her left arm. She denies any other complaint. Review of system was again positive for diarrhea although patient did not had any recorded bowel movement overnight. Limited review of system was obtained due to patient's mental status dementia and she denied any shortness of breath chest pain abdominal pain or fever. Review of Systems Review of Systems: ROS unobtainable: Yes unobtainable due to mental status Exam Narrative: General: Pt is alert awake and in NAD Lungs/Chest: Trachea central Clear BS B/L, No crackles or wheezing. Mild to palpation on left anterior chest at the site of device but no redness or swelling seen Cardiac: RRR. Normal S1 S2. No murmurs Circulation: Pedal pulses are intact and symmetrical. Abdomen: Normal bowel sounds.. Soft. NT. ND. Extremities: No clubbing, cyanosis or edema. Warm : Romo in place Neurologic: Follows commands. Moves all 4 extremities PERRL AOx1. Skin: No Rash Objective Data Vital Signs Vital Signs: Vital Signs - 24 hr 10/25/22 08:51 10/25/22 08:54 10/25/22 10:00 Temperature 36.6 C Pulse Rate 60 61 65 Respiratory Rate 22 H 16 Blood
[2022-10-26] MEDS: LEVOTHYROXINE SODIUM 12.5 MCG TABLET 37.5 MCG PO (11:43)
--- NOTE | 2022-10-26 13:44 | PM.PNCARD ---
Progress Note: A&P Assessment and Plan (1) Sick sinus syndrome due to sinoatrial node dysfunction: Code(s): I49.5 - Sick sinus syndrome Status: Acute Assessment and Plan: Patient presents with syncope found a 22 second asystole now status post dual chamber pacemaker. Normal device function on interrogation. Chest x-ray this afternoon. Will review when available. Continue post pacemaker implantation precautions. Provided leads stable on chest x-ray from cardiac perspective disposition per hospitalist service. She will follow-up with Dr. Castillo as an outpatient within the next month and with a 1 week wound check post implant in our office with our pacemaker nurse. -check orthostatics -PT OT prior to discharge. -echocardiogram personally reviewed and discussed normal LV size and function EF 60-65% mild TR no other significant valve pathology otherwise unremarkable echocardiogram. (2) Syncope: Code(s): R55 - Syncope and collapse Status: Acute Assessment and Plan: Asystole due to sinus node dysfunction very likely explanation for syncope as above. (3) PSVT (paroxysmal supraventricular tachycardia): Code(s): I47.1 - Supraventricular tachycardia Status: Acute Assessment and Plan: Will continue to monitor. If significant recurrence and or sustained arrhythmia addition of beta-estelle therapy now that she is status post pacemaker reasonable. Continue to monitor for the time being. (4) COVID-19 virus infection: Code(s): U07.1 - COVID-19 Status: Acute Assessment and Plan: Per primary service. She remains in isolation but is doing well on room air. (5) Hypothyroidism: Code(s): E03.9 - Hypothyroidism, unspecified Status: Acute Assessment and Plan: Started on levothyroxine. Continue to monitor. (6) Chest pain: Code(s): R07.9 - Chest pain, unspecified Status: Acute Plan Resolved, atypical noncardiac not consistent with acute myocardial infarction or ischemia. Subjective Date/time seen: Date of service: 10/26/22 13:44 Follow-up for syncope asystole, status post pacemaker Patient feeling well. Denies chest pain, shortness of breath or palpitations. No dizziness. No issues overnight. Intermittent atrial paced on telemetry. Brief episodes of asymptomatic SVT on telemetry. Spoke with patient's daughter Ermelinda Leos on the phone as requested all questions answered to her satisfaction. Explained clinical status and plan of care. She appreciated communication and explanations. Review of Systems Review of Systems: Remainder of the review of systems is otherwise negative aside from that noted in the HPI. All systems reviewed & are unremarkable except as noted in HPI and below Constitutional: Constitutional: Reports as per HPI and Reports no additional constitutional complaints Eyes: Eyes: Reports as per HPI and Reports no additional eye complaints ENT: Reports system reviewed and no additional complaints, except as documented and Reports as per HPI Cardiovascular: Cardiovascular: Reports as per HPI and Reports no additional cardiovascular complaints Respiratory: Respiratory: Reports as per HPI and Reports no additional respiratory complaints Gastrointestinal: Gastrointestinal: Reports as per HPI and Reports no additional gastrointestinal complaints Genitourinary: Genitourinary: Reports as per HPI Musculoskeletal: Musculoskeletal: Reports no additional musculoskeletal complaints and Reports as per HPI Integumentary/Breasts: Skin/Breast: Reports system reviewed and no additional complaints, except as docu and Reports as per HPI Neurologic: Reports system reviewed and no additional complaints, except as documented and Reports as per HPI Psychiatric: Psychiatric: Reports no additional psychiatric complaints and Reports as per HPI Endocrine: Endocrine: Reports no additional endocrine complaints and Reports as per HPI H
--- NOTE | 2022-10-26 15:50 | PM.DS ---
DS: Admitting Diagnosis Discharge Date October 26, 2022 Admitting Diagnosis Dizziness DS: Discharge Diagnosis Discharge Diagnosis (1) Sick sinus syndrome due to sinoatrial node dysfunction: Code(s): I49.5 - Sick sinus syndrome Status: Acute (2) COVID-19 virus infection: Code(s): U07.1 - COVID-19 Status: Acute (3) Syncope: Code(s): R55 - Syncope and collapse Status: Acute DS: Summary Hospital Course Hospital Course: This is a 76-year-old female patient who became lightheaded dizzy and had a syncopal episode fell backwards on the floor.? The patient stated she was washing dishes in her found her slumped over the sink.? He went to see was going on she fell backwards and she struck her head on his knee and she would down to the floor.? The patient was confused and disorientated.? She has a history of Alzheimer's.? The patient had a history of diarrhea for 1 and half week and is having 2-6 episodes a day.? The patient was trying to tell me that she fell another time when she was coming up the stairs and she was trying to put the Hasty boxes on the floor and she fell forward hit her chest on the boxes.? The patient tested positive for COVID yesterday and has been feeling weak and dizzy.? Patient had a 2D echo done which showed ejection fraction 65%. Also notice sinus pauses on EKG consistent with type 2 heart block. Seen by Cardiology patient started with bedside pacemaker and was also tested positive for COVID. Patient underwent cardiac catheterization and a pacemaker placement. Patient was also noted to have hypothyroidism with an elevated TSH but normal free T3-T4 will have patient follow-up with reel film inspector as an outpatient questions about levothyroxine. Patient being transferred out of ICU and being discharged home to follow-up with cardiology in 1 week. Time Spent with Patient Time attestation: Total time spent providing and/or coordinating discharge services: Exam Narrative: GENERAL: Well appearing, well-nourished, non-toxic, in no acute distress. HEAD: Normocephalic, atraumatic. NECK: Supple. No adenopathy, no masses. RESPIRATORY: Airway patent, respirations nonlabored. Clear to auscultation bilaterally, no rales, rhonchi, wheezing. CARDIOVASCULAR: Regular rate and rhythm without murmurs, rubs, or gallops. Peripheral pulses 2+ and equal bilaterally. Chest wall pacemaker in place bandage is clean ABDOMINAL: Soft, nontender, nondistended, no hepatosplenomegaly. Normoactive BS. MUSCULOSKELETAL: no Epigastric and no hypochondrial tenderness SKIN: Warm, dry, normal color. No rashes. NEURO: A&O X3. Moves all extremities PSYCHIATRIC: Appropriate mood and affect. Normal interaction. DS: Data Data Completed and Pending Labs on day of discharge: Labs from last 24 hours 10/26/22 10/26/22 04:39 04:39 WBC 5.5 RBC 4.00 L Hgb 12.6 Hct 39.0 MCV 97.5 MCH 31.5 MCHC 32.3 RDW 12.2 Plt Count 147 L MPV 9.5 Sodium 135 L Potassium 4.0 Chloride 109 H Carbon Dioxide 23 Anion Gap 3 L BUN 11 Creatinine 0.60 L Estim Creat Clear Calc 62 Estimated GFR > 60 Glucose 89 Calcium 7.1 L Phosphorus 2.2 L Magnesium 2.1 Total Bilirubin 0.6 AST 29 ALT 24 Alkaline Phosphatase 44 Total Protein 6.0 L Albumin 3.4 L Discharge Plan Discharge Consulting providers: Carmel Miranda Adarsh Discharging Clinician: Bud Guillory Patient Disposition: Home, Self-Care Activity: as tolerated Diet: heart healthy Discharge Instructions: [facility] [address]
[2022-10-26] MEDS: ACETAMINOPHEN 325 MG TABLET 650 MG PO (16:51)
--- NOTE | 2022-10-26 18:12 | PC.NURSE ---
1700: Patient discharged home with her daughter. The following discharge instructions were reviewed with the patient and her daughter: (1) Discharge for patients with a pacer. (2) Care of the site. (3) Follow-up appointment with the manager of exhibitions and collections by the Oct and also with her PCP secondary to the initiation of a new medication (levothyroxine). The daughter will be the primary support to the patient and her for now.
[2022-10-29 21:18] LABS: Triiodothyronine T3 Free 2.7 pg/mL (2.3-4.2)
== END 2022-10-26 17:00 | disposition home or self-care (01) | DRG 242 ==
LOC: ANHED 17:03 → ANH3MEDSUR 18:57 → ANH3MED 21:57 → ANHICU 10-25 07:43
PROVIDERS: Internal Medicine; Nurse Practitioner; Specialist; Admitting Provider Internal Medicine; Emergency Provider Emergency Medicine; PCP Family Medicine; Visit Provider Internal Medicine
PROC: 0JH606Z Insertion of Pacemaker, Dual Chamber into Chest Subcutaneous Tissue and Fascia, Open Approach (ICD-10-PCS; CPT 33208; principal; 2022-10-25 13:00)
DX: I49.5 Sick sinus syndrome (principal); U07.1 COVID-19; I47.1 Supraventricular tachycardia; R55 Syncope and collapse; E87.8 Other disorders of electrolyte and fluid balance, not elsewhere classified; F41.9 Anxiety disorder, unspecified; G30.9 Alzheimer's disease, unspecified; F02.80 Dementia in other diseases classified elsewhere, unspecified severity, without behavioral disturbance, psychotic disturbance, mood disturbance, and anxiety; M47.812 Spondylosis without myelopathy or radiculopathy, cervical region; R19.7 Diarrhea, unspecified; R94.6 Abnormal results of thyroid function studies; W18.30XA Fall on same level, unspecified, initial encounter; Z90.49 Acquired absence of other specified parts of digestive tract
CPT/HCPCS: 33208; 36415; 70450; 71045; 71046; 72125; 80053; 83605; 83735; 84100; 84439; 84443; 84480; 84481; 85025; 85027; 93005; 93306; 96361; 96365; 99285; A9270; C1779; C1785; G0378; J0131; J0461; J0690; J3475; J3480; J7030; J7040; U0003; U0005

== ENCOUNTER 2023-01-20 10:15 | Outpatient (CLI) | payer MEDICARE, SELFPAY ==
--- NOTE | ~2023-01-20 | DEXA_ITS ---
Bone Density Report Name: NAHUM BENNETT Age: 77 Sex: Female Ethnicity: White Date of : 1945 Indication: postmenopausal; screening for osteoporosis; Referring Provider: SUYAPA, WALT Rosas Study: Bone densitometry was performed. Exam Date: January 20, 2023 Accession number: [id number] Bone Density: Region BMD T-score Z-score Classification AP Spine(L1, L2, L3) 0.993 -0.2 2.2 Normal Femoral Neck (Left) 0.575 -2.5 -0.3 Osteoporosis Total Hip (Left) 0.760 -1.5 0.4 Osteopenia Femoral Neck (Right) 0.591 -2.3 -0.1 Osteopenia Total Hip (Right) 0.752 -1.6 0.3 Osteopenia Total Hip Mean 0.756 -1.6 0.4 Osteopenia World Health Organization criteria for BMD impression classify patients as: Normal (T-score at or above -1.0), Osteopenia (T-score between -1.0 and -2.5), or Osteoporosis (T-score at or below -2.5). 10-year Fracture Risk: FRAX not reported because: Some T-score for Spine Total or Hip Total or Femoral Neck at or below -2.5 Treated for osteoporosis Clinical Information Provided by Patient: Is being treated for osteoporosis Has used the following medications: Prolia (i.e. denosumab), Vitamin D, Calcium Patient maximum height was 62.5 Menopause Age: 54 Onset of menses at age 14 Number of children 2 Impression: The patient has osteoporosis, based on the Left Femoral Neck T-score. Discussion: It is important to ask patients whether they are taking their medications and to encourage continued and appropriate compliance with their osteoporosis therapies to reduce fracture risk. It is also important to review their risk factors and encourage appropriate calcium and vitamin D intakes, exercise, fall prevention and other lifestyle measures. Follow-Up: Consider a repeat BMD and Vertebral Fracture Assessment (VFA) exam in 2 years or sooner if medically necessary, to reassess this patient's status. Reported by: [facility] on 01/20/2023 10:36:00 AM. Reviewed, dictated and finalized at location [facility]. [place]
== END 2023-01-20 10:16 | disposition home or self-care (01) ==
PROVIDERS: PCP Family Medicine; Visit Provider Family Medicine
DX: M81.0 Age-related osteoporosis without current pathological fracture (principal); Z78.0 Asymptomatic menopausal state; M85.89 Other specified disorders of bone density and structure, multiple sites
CPT/HCPCS: 77080